=== PATIENT | female | born 1965 | race African-American/Black ===

== ENCOUNTER 2018-11-04 09:34 | Outpatient (CLI) | payer OTHER ==
[2018-11-04 12:59] LABS: #Basophils 0.1 thou/uL (0.0-0.2); #Eosinphils 0.3 thou/uL (0.0-0.7); #Lymphocytes 2.7 thou/uL (1.20-3.40); #Monocytes 0.6 thou/uL (0.11-0.59); #Neutrophils 4.7 thou/uL (1.40-6.50); %Basophils 0.9 % (0.0-1.0); %Monocytes 6.8 % (0.0-10.0); %Neutrophils 56.2 % (42.0-75.0); Hemoglobin 12.3 g/dL (12.0-16.0); Mean Corpuscular HGB CONC 30.3 g/dL (32.0-36.0); Mean Corpuscular Hemoglobin 27.1 pg (27.0-31.0); Mean Corpuscular Volume 89.4 fL (78.0-98.0); Mean Platelet Volume 8.3 fL (7.4-10.4); Platelet Count 258 thou/uL (130-400); RBC Distribution Width 11.7 % (11.5-14.5); Red Blood Cell (RBC) Count 4.54 mill/uL (4.20-5.40); White Blood Cell (WBC) Count 8.4 thou/uL (4.8-10.8)
[2018-11-04 13:03] LABS: INR-International Normal Ratio 0.9; Prothrombin Time 12.1 SEC (12.0-14.7)
[2018-11-04 13:10] LABS: Bilirubin Negative (Negative); Blood, Urine 1+ (Negative); Clarity Clear (Clear); Glucose, Urine (Dipstick) Normal (Negative); Leukocyte Negative Leu/uL (Negative); Nitrite Negative (Negative); Protein, Urine (Dipstick) Negative (Neg-Trace); RBC/HPF 0-3 HPF (0-3); Squamous Epithelial 0-3 HPF (0-3); Urobilinogen Normal mg/dL (Less than 2); WBC/HPF 0-3 HPF (0-3)
[2018-11-04 13:15] LABS: Bacteria/HPF 1+ HPF (None Seen)
[2018-11-04 13:19] LABS: Anion Gap 14 mmol/L (10-20); BUN (Urea Nitrogen) 15 mg/dL (9.8-20.1); Calc. Creatinine Clearance 0 mL/min (70-130); Calcium 10.2 mg/dL (7.8-10.44); Carbon Dioxide 26 mmol/L (22-29); Chloride 102 mmol/L (98-107); Estimated GFR-MDRD 78; Glucose 88 mg/dL (70-105); Potassium 4.6 mmol/L (3.5-5.1); Sodium 137 mmol/L (136-145)
--- NOTE | 2018-11-04 17:01 | EKG ---
Test Reason : Blood Pressure : / mmHG Vent. Rate : 053 BPM Atrial Rate : 053 BPM P-R Int : 174 ms QRS Dur : 078 ms QT Int : 436 ms P-R-T Axes : 069 057 055 degrees QTc Int : 409 ms Sinus bradycardia Otherwise normal ECG No previous ECGs available Confirmed by DR. Carolyn GUTIERREZ ([id number]) on 11/04/2018 5:00:57 PM Referred By: ALLY Confirmed By:DR. Carolyn GUTIERREZ
== END 2018-11-04 09:35 | disposition home or self-care (01) ==
LOC: LABBT 09:34
PROVIDERS: ATTEND Orthopaedic Surgery
DX: Z01.818 Encounter for other preprocedural examination (principal); M17.12 Unilateral primary osteoarthritis, left knee
CPT/HCPCS: 80048; 81001; 85025; 85610; 87077; 87081; 87086; 87186; 93005; 93010

== ENCOUNTER 2018-11-15 05:28 | Day surgery (SDC) | payer OTHER ==
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
[2018-11-04 09:42] VITALS: BMI 41.2
[2018-11-15] MEDS ORDERED: Tranexamic Acid 1,000 MG/10 ML VIAL ONE ×2 (05:58→08:56)
[2018-11-15] MEDS ORDERED: Sodium Chloride 0.9% 100 ML ONE (05:58)
[2018-11-15] MEDS ORDERED: ceFAZolin Sodium (SDC) 2 GM/100 ML BAG ONE (05:58)
[2018-11-15] MEDS ORDERED: Vancomycin HCl 1.5 GM in Sodium Chloride 0.9% 250 ML 300 ML IVPB SCH ×3 (06:15→20:00)
[2018-11-15] MEDS ORDERED: Midazolam HCl 2 mg/2 ml Vial ONE (06:34)
[2018-11-15] MEDS ORDERED: Fentanyl 100 MCG/2 ML VIAL ONE ×4 (06:34→09:30)
[2018-11-15] MEDS ORDERED: Lidocaine 1% (PF) 30 ML VIAL ONE (06:34)
[2018-11-15] MEDS ORDERED: Bupivacaine 0.25% HCL 30 ML VIAL ONE (07:47)
[2018-11-15] MEDS ORDERED: Zolpidem Tartrate 5 MG TAB PO PRN ×2 (07:51→09:18)
[2018-11-15] MEDS ORDERED: Ropivacaine HCl/PF 250 ML in Premix Bag 1 BAG NERVE BLCK SCH (07:51)
[2018-11-15] MEDS ORDERED: Ondansetron PF 4 MG/2 ML Vial IVP PRN ×2 (07:51→09:18)
[2018-11-15] MEDS ORDERED: Promethazine HCl 25 MG/ML VIAL IM PRN (07:51)
[2018-11-15] MEDS ORDERED: Tranexamic Acid 1,000 MG in Sodium Chloride 0.9% 100 ML IVPB SCH ×2 (09:00→09:18)
[2018-11-15] MEDS ORDERED: Fentanyl 100 MCG/2 ML VIAL SLOW IVP PRN ×2 (09:18)
[2018-11-15] MEDS ORDERED: HYDROcodone/Acetaminophen 10/325 mg Tablet PO PRN ×2 (09:18)
[2018-11-15] MEDS ORDERED: Promethazine HCl 25 MG/ML VIAL SLOW IVP PRN (09:18)
[2018-11-15] MEDS ORDERED: Non-Formulary Item 1 EACH (Potassium [Potassium] 99 MG) PO SCH (09:18)
[2018-11-15] MEDS ORDERED: Acetaminophen 325 MG TAB PO PRN (09:18)
[2018-11-15] MEDS ORDERED: traMADol HCl 50 MG TAB PO PRN (09:18)
[2018-11-15] MEDS ORDERED: Gabapentin 400 MG CAP PO PRN (09:18)
[2018-11-15] MEDS ORDERED: diphenhydrAMINE 25 MG CAP PO PRN (09:18)
--- NOTE | 2018-11-15 09:21 | RAD ---
EXAM: 2 views of the left knee HISTORY: Knee arthroplasty COMPARISON: None FINDINGS: No knee effusion is seen. The patient is status post knee arthroplasty without perihardware lucency or fracture. Air in the soft tissues is from recent surgery. IMPRESSION: Status post knee arthroplasty without evidence of complication.
[2018-11-15] MEDS ORDERED: Aspirin 81 mg Enteric Coated Tablet PO SCH (10:30)
[2018-11-15] MEDS ORDERED: ALPRAZolam 1 MG TAB PO SCH (10:30)
[2018-11-15] MEDS ORDERED: Folic Acid 1 MG TAB PO SCH (10:30)
[2018-11-15] MEDS: Sodium Chloride 0.9% 1,000 ML IV SCH ×2 (10:31→18:19)
--- NOTE | 2018-11-15 11:34 | OP ---
DATE OF PROCEDURE: 11/15/2018 [facility] PARTNER: Luis Angel Francisco PA-C ANESTHESIA: General plus adductor canal and sciatic nerve blocks. PREOPERATIVE DIAGNOSIS: Degenerative arthritis, left knee. POSTOPERATIVE DIAGNOSIS: Degenerative arthritis, left knee. PROCEDURES PERFORMED: Left total knee replacement with computer-assisted navigation and cemented Janet triathlon components (#4 femoral component, #4 primary tibial base plate with 9 mm CS plastic insert, and A29 all plastic patellar component). DESCRIPTION OF PROCEDURE: After satisfactory anesthesia was induced in supine position, the patient was prepped and draped in routine manner. Sequential compression device was used on the nonoperative leg throughout the procedure. The left leg was elevated, exsanguinated with an Esmarch bandage and the tourniquet inflated to 300 mmHg. Rather than make the standard midline over the medial parapatellar approach, I decided to incorporate the previous lateral incision as I felt that there was enough skin bridge between the previous lateral incision and a more medial incision. The previous lateral incision was opened in-line with the previous incision and this incision carried medially proximal to the patella. Care was taken to developed a full-thickness flap, which was retracted medially and the care was taken to avoid a pressure on the skin throughout the procedure. A medial parapatellar arthrotomy was performed and the patella was dislocated laterally and portion of the fat pad were excised for exposure. There was marked degenerative arthritis of the knee especially laterally with areas of exposed bone. Apparently a defect in the tibia, probable previous lateral tibial plateau fracture. Meniscal remnants and osteophytes were removed. Using the Goowy pinless navigation system and the appropriate guides, the distal femoral and proximal tibial articular surfaces were excised with oscillating saw to accept the trial components. It was felt that #4 femoral component and #4 tibial base plate with 9 mm CS plastic insert gave appropriate size, fit, and stability, including correction of the preoperative deformity. The patellar articular surface was excised to accept all plastic A29 patellar component. There was good range of motion and good patellar tracking. The trial components were removed. The knee was copiously irrigated with pulsatile lavage. The bony surfaces thoroughly cleaned and dried. The permanent components were then cemented in a single stage using one pack of cement premixed with 1 g of tobramycin powder. Excess cement was removed. There was again good fit stability of the components. The knee was copiously irrigated with pulsatile lavage. The medial retinaculum and quadriceps mechanism were closed with interrupted #2 Vicryl and a running #2 Quill. Subcutaneous tissues were closed with a running 0 Quill suture. The skin closed with running subcuticular 3-0 Monoderm and SurgiSeal skin adhesive. A sterile bulky compressive dressing was applied. The tourniquet deflated after 72 minutes. The foot promptly pinked up and a sequential compression device was applied to the operated leg. She was awakened and taken to recovery room in stable condition. There were no apparent intraoperative complications. The estimated blood loss was less than 100 mL. Job ID: [id number]
[2018-11-15] MEDS ORDERED: Ketorolac Tromethamine 30 MG/ML VIAL IVP SCH (12:00)
[2018-11-15] MEDS: Ketorolac Tromethamine 30 MG/ML VIAL IVP SCH ×3 (12:25→23:38)
[2018-11-15] MEDS: Fentanyl 100 MCG/2 ML VIAL IV PRN (15:20)
[2018-11-15] MEDS: CEFAZOLIN 2 GM, IV Admixture Fee-Chemo 1 UNITS in Sodium Chloride 0.9% 100 ML IVPB SCH ×2 (16:06→21:01)
[2018-11-15] MEDS ORDERED: Ropivacaine 0.5% HCl/PF (150 MG/30 ML VIAL) ONE (16:27)
[2018-11-15] MEDS ORDERED: Ropivacaine 0.2% HCl/PF (40 MG/20 ML VIAL) ONE (16:27)
[2018-11-15] MEDS ORDERED: PROPOFOL 200 MG/20 ML VIAL ONE (16:39)
[2018-11-15] MEDS ORDERED: PHENYLEPHRINE-NS 100 MCG/ML 10 ML SYRINGE ONE (16:39)
[2018-11-15] MEDS ORDERED: Lidocaine 1% PF 5 ML VIAL ONE (16:39)
[2018-11-15] MEDS ORDERED: Ondansetron PF 4 MG/2 ML Vial ONE (16:39)
[2018-11-15] MEDS: Atorvastatin Calcium 10 MG TAB PO SCH (21:00)
[2018-11-15] MEDS: ALPRAZolam 1 MG TAB PO SCH (21:00)
[2018-11-15] MEDS: Aspirin 81 mg Enteric Coated Tablet PO SCH (21:01)
[2018-11-16] MEDS: Sodium Chloride 0.9% 1,000 ML IV SCH ×3 (03:03→23:48)
[2018-11-16] MEDS: Ketorolac Tromethamine 30 MG/ML VIAL IVP SCH ×4 (05:03→23:40)
[2018-11-16 05:11] LABS: Hemoglobin 10.7 g/dL (12.0-16.0); Mean Corpuscular HGB CONC 30.9 g/dL (32.0-36.0); Mean Corpuscular Hemoglobin 28.1 pg (27.0-31.0); Mean Corpuscular Volume 90.8 fL (78.0-98.0); Mean Platelet Volume 7.9 fL (7.4-10.4); Platelet Count 222 thou/uL (130-400); RBC Distribution Width 11.7 % (11.5-14.5); Red Blood Cell (RBC) Count 3.81 mill/uL (4.20-5.40); White Blood Cell (WBC) Count 7.5 thou/uL (4.8-10.8)
[2018-11-16] MEDS: Fentanyl 100 MCG/2 ML VIAL IV PRN (10:32)
[2018-11-16] MEDS: Multivitamin W/ Minerals 1 TAB PO SCH (10:39)
[2018-11-16] MEDS: Aspirin 81 mg Enteric Coated Tablet PO SCH ×2 (10:39→21:11)
[2018-11-16] MEDS: Folic Acid 1 MG TAB PO SCH (10:39)
[2018-11-16] MEDS: Senokot S 8.6-50 MG TAB PO SCH ×2 (10:39→21:12)
[2018-11-16] MEDS: ALPRAZolam 1 MG TAB PO SCH (10:40)
--- NOTE | 2018-11-16 12:36 | PRG ---
DATE OF SERVICE: 11/16/2018 SUBJECTIVE: Chey is a 53-year-old female, who is postop day 1 from left total knee arthroplasty. She has struggled a little bit with pain. However, she was able to get up, move earlier today and ambulate with physical therapy. She did struggle with discomfort and weightbearing and currently is uncomfortable. OBJECTIVE: VITAL SIGNS: Temperature 97.9, pulse 82, respiratory rate 16, nonlabored, blood pressure is 118/78. GENERAL: She is alert, oriented to person, place, time, situation, grossly nonfocal. EXTREMITIES: Responsive and appropriate with examiner. Her incision is clean and closed without erythema. She has as no malrotation or shortening. No deformities are obvious. No strike through is noted. She is neurovascularly intact in the left lower extremity. LABORATORY DATA: Hemoglobin and hematocrit 10.7 and 34.6. IMPRESSION: 1. A 53-year-old female, postoperative day 1 left total knee arthroplasty. 2. Pain control is equivocal. PLAN: Re-consult Pain Service for re-evaluation and consider discharge tomorrow if patient meets goals and milestones. Job ID: [id number]
[2018-11-16] MEDS ORDERED: ALPRAZolam 0.5 MG TAB PO PRN (12:51)
[2018-11-16] MEDS ORDERED: traMADol HCl 50 MG TAB PO PRN (12:53)
[2018-11-16] MEDS ORDERED: Fentanyl 100 MCG/2 ML VIAL SLOW IVP SCH (13:00)
[2018-11-16] MEDS ORDERED: HYDROcodone/Acetaminophen 10/325 mg Tablet PO SCH (13:00)
[2018-11-16] MEDS ORDERED: Gabapentin 400 MG CAP PO SCH (21:00)
[2018-11-16] MEDS: ALPRAZolam 0.5 MG TAB PO SCH (21:10)
[2018-11-16] MEDS: HYDROcodone/Acetaminophen 10/325 mg Tablet PO PRN (21:11)
[2018-11-16] MEDS: Atorvastatin Calcium 10 MG TAB PO SCH (21:11)
[2018-11-17] MEDS: Ketorolac Tromethamine 30 MG/ML VIAL IVP SCH (06:05)
[2018-11-17] MEDS: HYDROcodone/Acetaminophen 10/325 mg Tablet PO PRN ×3 (06:10→15:41)
[2018-11-17] MEDS ORDERED: HYDROcodone/Acetaminophen 10/325 mg Tablet PO PRN (08:19)
[2018-11-17] MEDS: Aspirin 81 mg Enteric Coated Tablet PO SCH (09:22)
[2018-11-17] MEDS: ALPRAZolam 0.5 MG TAB PO SCH (09:23)
[2018-11-17] MEDS: Folic Acid 1 MG TAB PO SCH (09:24)
[2018-11-17] MEDS: Multivitamin W/ Minerals 1 TAB PO SCH (09:24)
[2018-11-17] MEDS: Senokot S 8.6-50 MG TAB PO SCH (09:24)
[2018-11-17 14:08] VITALS: TEMP 97.4
[2018-11-17 15:49] VITALS: BP 116/76
== END 2018-11-17 16:33 | disposition home health service (06) ==
LOC: SDC 05:28 → SJJU 09:18 → EDSTATUS 13:15 → SDC 11-17 16:33
PROVIDERS: ATTEND Orthopaedic Surgery
PROC: 8E0YXBZ Computer Assisted Procedure of Lower Extremity (ICD-10-PCS; principal; 2018-11-15)
PROC: 0SRD0J9 Replacement of Left Knee Joint with Synthetic Substitute, Cemented, Open Approach (ICD-10-PCS; principal; 2018-11-15)
DX: M17.32 Unilateral post-traumatic osteoarthritis, left knee (principal); G89.29 Other chronic pain; F41.9 Anxiety disorder, unspecified; Z79.899 Other long term (current) drug therapy; Z96.643 Presence of artificial hip joint, bilateral; Z98.890 Other specified postprocedural states
CPT/HCPCS: 36415; 85027; 87086; C1713; C1776; J0690; J1885; J2001; J2250; J2405; J2704; J2795; J3010; J3370; J3490; J7050; S0020

== ENCOUNTER 2018-12-22 08:26 | Observation (INO) | payer OTHER ==
[2018-12-21 15:34] VITALS: BMI 41.8
[2018-12-22] MEDS ORDERED: Dexamethasone 4 mg/ml Vial ONE (09:17)
[2018-12-22] MEDS ORDERED: Midazolam HCl 2 mg/2 ml Vial ONE (09:17)
[2018-12-22] MEDS ORDERED: Fentanyl 100 MCG/2 ML VIAL ONE ×2 (09:17→11:04)
[2018-12-22] MEDS ORDERED: Bupivacaine HCl 0.5%/Epinephrine 1:200,000/PF 30 ml Vial ONE (10:33)
[2018-12-22] MEDS ORDERED: Lidocaine 1% PF 5 ML VIAL ONE (10:34)
[2018-12-22] MEDS ORDERED: PROPOFOL 200 MG/20 ML VIAL ONE (10:34)
[2018-12-22] MEDS ORDERED: Succinylcholine Chloride 20 MG/ML 10 ml SYRINGE FS ONE (10:34)
[2018-12-22] MEDS ORDERED: Promethazine HCl 25 MG/ML VIAL IM PRN (11:06)
[2018-12-22] MEDS ORDERED: Promethazine HCl 25 MG/ML VIAL SLOW IVP PRN (11:06)
[2018-12-22] MEDS ORDERED: Ondansetron HCl/PF 4 MG/2 ML Vial IVP PRN (11:06)
[2018-12-22] MEDS ORDERED: HYDROmorphone 2 MG/ML VIAL SLOW IVP PRN (11:06)
[2018-12-22] MEDS ORDERED: HYDROmorphone 2 MG/ML VIAL ONE (11:08)
[2018-12-22] MEDS ORDERED: Fentanyl 100 MCG/2 ML VIAL SLOW IVP PRN ×2 (11:21→11:22)
[2018-12-22] MEDS ORDERED: HYDROcodone/Acetaminophen 10/325 mg Tablet PO PRN (11:23)
[2018-12-22] MEDS ORDERED: Ketorolac Tromethamine 30 MG/ML VIAL IVP SCH (11:30)
--- NOTE | 2018-12-22 11:59 | HP ---
PRESENT ILLNESS: The patient is a 53-year-old female who underwent left total knee replacement approximately 5 weeks ago. She has had persistent problems regaining motion. Did have some problems setting up home health, physical therapy, but despite this, she tends to be more aggressive. She has had persistent stiffness. She is ambulatory with a walker. Her pain is under control, but she has persistent stiffness. PAST HISTORY: Please see the old chart. The patient is otherwise in good health. MEDICATIONS: She is taking hydrocodone for pain. ALLERGIES: SHE HAS NO ALLERGIES. FAMILY HISTORY: Otherwise unremarkable. SOCIAL HISTORY: Otherwise unremarkable. REVIEW OF SYSTEMS: Otherwise unremarkable. PHYSICAL EXAMINATION: GENERAL: Shows a healthy female. HEENT: Unremarkable. NECK: Supple. CHEST: Clear. HEART: Regular rate and rhythm. ABDOMEN: Soft, nontender. PELVIC: Deferred. RECTAL: Deferred. BREAST EXAM: Deferred. EXTREMITIES: Pertinent findings related to the left knee, incision is well healed. She has mild swelling. There are no clinical signs of infection. She is able to straight leg raise. She has range of motion from 5 to 70 degrees with assistance and no instability. NEUROVASCULAR EXAM: Intact. IMAGING STUDIES: Previous x-rays reveal satisfactory alignment of the total knee placement. IMPRESSION: Ankylosis, left total knee replacement. PLAN: Manipulation, left knee under anesthesia followed by aggressive physical therapy. The nature of the procedure, length, recovery, and potential complications such as persistent stiffness, fracture, need for additional treatment have been discussed in detail. Job ID: [id number]
[2018-12-22] MEDS ORDERED: Ketorolac Tromethamine 10 MG TAB PO SCH (12:00)
[2018-12-22] MEDS: Gabapentin 400 MG CAP PO SCH ×3 (14:37→20:08)
[2018-12-22] MEDS: Ketorolac Tromethamine 10 MG TAB PO SCH ×2 (15:48→20:08)
[2018-12-22] MEDS ORDERED: Mag-Al 1200 mg/1200 mg/30 ML UDCUP PO PRN (16:45)
--- NOTE | 2018-12-22 17:50 | OP ---
DATE OF PROCEDURE: 12/22/2018 ANESTHESIA: General. PREOPERATIVE DIAGNOSIS: Stiffness, status post left total knee replacement. POSTOPERATIVE DIAGNOSIS: Stiffness, status post left total knee replacement. PROCEDURE PERFORMED: Manipulation, left knee under anesthesia. DESCRIPTION OF PROCEDURE: After satisfactory anesthesia was induced in supine position, the patient's knee was gently manipulated with pressure and flexion at the knee to help gain flexion and extension. This was done very slow methodical manner to avoid sudden motions to prevent tearing or fracture. Gentle pressure was placed with knee in extension and also flexion over a period of approximately 20 minutes, and I was able to gain motion from approximately 2 to 115 degrees, which was documented with the goniometer as well as with cellphone photographs. She was then taken to recovery room in stable condition, where she was placed on a CPM machine. She will be admitted overnight for observation for pain control and aggressive physical therapy to maintain motion. There were no apparent intraoperative complications. The estimated blood loss was 0. Job ID: [id number]
[2018-12-22] MEDS: Atorvastatin Calcium 10 MG TAB PO SCH (20:08)
[2018-12-22] MEDS: ALPRAZolam 1 MG TAB PO PRN (20:53)
[2018-12-22] MEDS: HYDROcodone/Acetaminophen 10/325 mg Tablet PO PRN (20:54)
[2018-12-23] MEDS: Ketorolac Tromethamine 10 MG TAB PO SCH ×4 (01:47→20:57)
[2018-12-23] MEDS: Folic Acid 1 MG TAB PO SCH (08:41)
[2018-12-23] MEDS: Gabapentin 400 MG CAP PO SCH ×4 (08:41→20:57)
[2018-12-23] MEDS ORDERED: POTASSIUM PO SCH (09:00)
--- NOTE | 2018-12-23 10:01 | RAD ---
EXAM: 2 views of the left knee HISTORY: Knee arthroplasty; the pain and buckling COMPARISON: 11/15/2018 FINDINGS: No knee effusion is seen. The patient is status post knee arthroplasty without perihardware lucency or fracture. No soft tissue swelling is seen. IMPRESSION: Status post knee arthroplasty without evidence of complication.
[2018-12-23] MEDS: Atorvastatin Calcium 10 MG TAB PO SCH (20:58)
[2018-12-23] MEDS: ALPRAZolam 1 MG TAB PO PRN (20:59)
[2018-12-23] MEDS: HYDROcodone/Acetaminophen 10/325 mg Tablet PO PRN (20:59)
[2018-12-23 23:28] VITALS: TEMP 97.6
[2018-12-24] MEDS: Ketorolac Tromethamine 10 MG TAB PO SCH ×2 (01:46→09:46)
[2018-12-24 07:48] VITALS: BP 103/68
[2018-12-24] MEDS: Folic Acid 1 MG TAB PO SCH (09:47)
[2018-12-24] MEDS: HYDROcodone/Acetaminophen 10/325 mg Tablet PO PRN (09:47)
[2018-12-24] MEDS: Gabapentin 400 MG CAP PO SCH (09:47)
--- NOTE | 2018-12-27 11:54 | DIS ---
DATE OF ADMISSION: 12/22/2018 DATE OF DISCHARGE: 12/24/2018 HOSPITAL COURSE: The patient is approximately 6 weeks status post left total knee replacement. She has had persistent problems with pain and stiffness despite attempt at aggressive physical therapy. She was taken to the operating room on the day of admission, where she underwent manipulation of her knee under general anesthesia with single shot femoral nerve block. She definitely improve following the procedure, but had persistent weakness in her quadriceps, lasting greater than 24 hours, was thought to be secondary to the block. She felt unsafe for walking even with a knee immobilizer. She was kept an extra day in the hospital and this resolved. She now has a greater than 90 degrees of flexion and has improving quadriceps strength. She is discharged in satisfactory condition. She will continue home health physical therapy and was instructed the importance of aggressive active assisted range of motion exercises to prevent further stiffness. The patient has hydrocodone for pain and will be rechecked in my office in approximately 1 week or sooner if there are any problems prior to that time. DISCHARGE DIAGNOSES: Stiffness, left knee, status post left total knee replacement. Job ID: [id number] [facility]
== END 2018-12-24 11:20 | disposition home health service (06) ==
LOC: SDC 08:26 → SJJU 11:00
PROVIDERS: ADMIT Orthopaedic Surgery; ATTEND Orthopaedic Surgery
PROC: 0SQ Lower Joints, Repair (ICD-10-PCS; principal; 2018-12-22)
DX: M25.662 Stiffness of left knee, not elsewhere classified (principal); F41.9 Anxiety disorder, unspecified; G89.29 Other chronic pain; Z87.891 Personal history of nicotine dependence; Z96.652 Presence of left artificial knee joint
CPT/HCPCS: G0378; J0670; J1100; J1170; J2001; J2250; J2704; J3010